=== PATIENT | male | born 2000 | race Caucasian/White ===

== ENCOUNTER 2023-12-31 18:13 | Emergency (ER) | payer OTHER ==
[2023-12-31 18:35] VITALS: O2SAT 100
[2023-12-31 18:48] LABS: BILIRUBIN,URINE NEGATIVE (NEGATIVE); GLUCOSE, URINE (UA) NEGATIVE (NEGATIVE); KETONES,URINE (UA) NEGATIVE (NEGATIVE); LEUKOCYTE ESTERASE, URINE NEGATIVE (NEGATIVE); NITRITE,URINE NEGATIVE (NEGATIVE); OCCULT BLOOD,URINE NEGATIVE (NEGATIVE); PH,URINE 6.5 PH (5.0-7.5); PROTEIN,URINE NEGATIVE (NEGATIVE); UROBILINOGEN,URINE 0.2 (NORMAL) E.U./dL (NORMAL)
[2023-12-31 18:49] LABS: CLARITY,URINE CLEAR (CLEAR)
[2023-12-31 18:52] LABS: BASOPHILS % (AUTO) 0.7 %; EOSINOPHILS % (AUTO) 0.4 %; HCT - HEMATOCRIT 41.9 % (42.0-52.0); HGB - HEMOGLOBIN 14.5 g/dL (14.0-18.0); LYMPHOCYTES # (AUTO) 1.2 10^3/uL (1.5-3.5); LYMPHOCYTES % (AUTO) 21.4 %; MEAN CORPUSCULAR HEMOGLOBIN 32.2 pg (27.0-31.0); MEAN CORPUSCULAR HGB CONC 34.6 g/dL (32.0-36.0); MEAN CORPUSCULAR VOLUME 93.1 fL (80.0-94.0); MONOCYTES # (AUTO) 0.3 10^3/uL (0.0-1.0); MONOCYTES % (AUTO) 4.9 %; NEUTROPHILS # (AUTO) 4.1 10^3/uL (1.5-6.6); NEUTROPHILS % (AUTO) 72.4 %; PLT - PLATELET COUNT 199 10^3/uL (130-450); RED CELL DISTRIBUTION WIDTH 11.9 % (12.0-15.0); WHITE BLOOD COUNT 5.7 x10^3/uL (4.8-10.8)
[2023-12-31 18:59] LABS: AMPHETAMINE SCREEN,URINE NEGATIVE (NEGATIVE); BARBITURATE SCREEN,UR NEGATIVE (NEGATIVE); BENZODIAZEPINES SCREEN, URINE NEGATIVE (NEGATIVE); BUPRENORPHINE SCREEN, URINE NEGATIVE (NEGATIVE); COCAINE SCREEN URINE NEGATIVE (NEGATIVE); METHADONE SCREEN, URINE NEGATIVE (NEGATIVE); METHAMPHETAMINES SCREEN, URINE NEGATIVE (NEGATIVE); OPIATE SCREEN, URINE NEGATIVE (NEGATIVE); OXYCODONE SCREEN, URINE NEGATIVE (NEGATIVE); THC CANNABINOID SCREEN, URINE NEGATIVE (NEGATIVE); TRICYCLIC ANTIDEPRESSANT,URINE NEGATIVE (NEGATIVE)
--- NOTE | 2023-12-31 19:05 | ED Physician Documentation ---
PD HPI MHE - Stated complaint Stated Complaint: SI - Chief complaint Chief Complaint: MHE - History obtained from History obtained from: Patient - History of Present Illness Primary symptom: Suicidal ideation Pain level max: 0 Pain level now: 0 - Additional information Additional information: Patient is a 23-year-old male who presents to the emergency department with suicidal ideation. He is active duty [employer]. He states that he lives in the [facility]. He states that he has had increasing thoughts of suicide over the past 3 years. He states that he had been on bupropion in the past, did not feel like it was helping so stopped it last year. Went back on it about 6 weeks ago. He is seeing behavioral health at the [employer] [facility]. He states that he also started Concerta 3 weeks ago for ADHD. He states that he has never attempted suicide but does not feel like he can keep himself safe at home. He has never been hospitalized for this. He states that nothing really happened today other than none of his friends could "hang out" with him. He states he has had several plans on how to commit suicide including driving his car too fast and crashing it intentionally, using a "exit bag", guns or knives. Review of Systems Constitutional: denies: Fever, Chills Cardiac: denies: Chest pain / pressure, Palpitations Respiratory: denies: Dyspnea, Cough : denies: Dysuria Psychiatric: reports: Depressed, Suicidal. denies: Hallucinations, Delusions, Anxiety PD PAST MEDICAL HISTORY - Past Medical History Past Medical History: Yes Psych: Depression, ADD/ADHD - Past Surgical History Past Surgical History: No - Present Medications Home Medications: Ambulatory Orders Medication Instructions Recorded Confirmed Methylphenidate HCl [Concerta] 36 mg PO DAILY 12/31/23 12/31/23 buPROPion HCL [Bupropion Xl] 150 mg PO DAILY 12/31/23 12/31/23 - Allergies Allergies/Adverse Reactions: Allergies Allergy/AdvReac Type Severity Reaction Status Date / Time No Known Drug Allergies Allergy Verified 12/31/23 18:34 - Social History Does the pt smoke?: No Smoking Status: Never smoker Does the pt drink ETOH?: Yes Does the pt have substance abuse?: No - Immunizations Immunizations are current?: Yes - POLST Patient has POLST: No PD ED PE NORMAL - Vitals Vital signs reviewed: Yes - General General: Alert and oriented X 3, No acute distress - HEENT HEENT: Moist mucous membranes - Neck Neck: Supple, no meningeal sign - Cardiac Cardiac: RRR, Strong equal pulses - Respiratory Respiratory: No respiratory distress, Clear bilaterally - Abdomen Abdomen: Soft, Non tender, Non distended - Derm Derm: Warm and dry - Extremities Extremities: No edema - Neuro Neuro: Alert and oriented X 3 - Psych Psych: Normal mood, Normal affect Results - Vitals Vitals: Vital Signs - 24 hr 12/31/23 12/31/23 18:21 18:34 Temperature 37.2 C 37.2 C Heart Rate 111 H 111 H Respiratory 20 20 Rate Blood Pressure 143/73 H 143/73 H O2 Saturation 100 100 Oxygen O2 Source Room air - EKG (time done) 1913 EKG releavant findings:: EKG personally interpreted by author of this note. Relevant findings are: Rate: Rate (enter#) (99) Rhythm: NSR [place]: Normal Intervals: Normal [place] QRS: Normal Ischemia: ST elevation c/w repol - Labs Labs: Laboratory Tests 12/31/23 12/31/23 12/31/23 18:35 18:46 18:47 WBC 5.7 RBC 4.50 L Hgb 14.5 Hct 41.9 L MCV 93.1 MCH 32.2 H MCHC 34.6 RDW 11.9 L Plt Count 199 MPV 9.0 Neut # (Auto) 4.1 Lymph # (Auto) 1.2 L Cross # (Auto) 0.3 Eos # (Auto) 0.0 Baso # (Auto) 0.0 Absolute Nucleated RBC 0.00 Nucleated RBC % 0.0 Sodium Potassium Chloride Carbon Dioxide Anion Gap BUN Creatinine Estimated GFR (MDRD) Glucose Calcium Magnesium Total Bilirubin AST ALT Alkaline Phosphatase Total Creatine Kinase Total Protein Albumin Globulin Albumin/Globulin Ratio Lipase TSH Urine Color LIGHT YELLOW Urine Clarity CLEAR Urine pH 6.5 Ur Specific [place] <=1.005 Urine Protein NEGATIVE Urine Glucose (UA) NEGATIVE Urine Ketones NEGATIVE Urine Occult Blood NEGATIVE Urine Nitrite NEGATIVE Urine Bilirubin NEGATIVE Urine Urobilinogen 0.2 (NORMAL) Ur Leukocyte Esterase NEGATIVE Ur Microscopic Review NOT INDICATED Urine Culture Comments NOT INDICATED Salicylates Urine Opiates Screen NEGATIVE Ur Buprenorphine Scrn NEGATIVE Ur Oxycodone Screen NEGATIVE Urine Methadone Screen NEGATIVE Acetaminophen Ur Barbiturates Screen NEGATIVE Ur Tricyclics Screen NEGATIVE Ur Phencyclidine Scrn NEGATIVE Ur Amphetamine Screen NEGATIVE U Methamphetamines Scrn NEGATIVE U Benzodiazepines Scrn NEGATIVE Urine Cocaine Screen NEGATIVE U Cannabinoids Screen NEGATIVE Ur Drug Screen Comment CUTOFF CONC BELOW: Ethyl Alcohol SARS-CoV-2 (PCR) NOT DETECTED 12/31/23 18:47 WBC RBC Hgb Hct MCV MCH MCHC RDW Plt Count MPV Neut # (Auto) Lymph # (Auto) Cross # (Auto) Eos # (Auto) Baso # (Auto) Absolute Nucleated RBC Nucleated RBC % Sodium 133 L Potassium 3.3 L Chloride 98 L Carbon Dioxide 25 Anion Gap 10.0 BUN 3 L Creatinine 0.6 Estimated GFR (MDRD) 167 Glucose 94 Calcium 9.6 Magnesium 1.3 L Total Bilirubin 1.1 H AST 19 ALT 13 Alkaline Phosphatase 41 L Total Creatine Kinase 189 Total Protein 6.4 Albumin 4.4 Globulin 2.0 L Albumin/Globulin Ratio 2.2 Lipase < 10 L TSH 0.57 Urine Color Urine Clarity Urine pH Ur Specific [place] Urine Protein Urine Glucose (UA) Urine Ketones Urine Occult Blood Urine Nitrite Urine Bilirubin Urine Urobilinogen Ur Leukocyte Esterase Ur Microscopic Review Urine Culture Comments Salicylates < 1.5 Urine Opiates Screen Ur Buprenorphine Scrn Ur Oxycodone Screen Urine Methadone Screen Acetaminophen 0.1 Ur Barbiturates Screen Ur Tricyclics Screen Ur Phencyclidine Scrn Ur Amphetamine Screen U Methamphetamines Scrn U Benzodiazepines Scrn Urine Cocaine Screen U Cannabinoids Screen Ur Drug Screen Comment Ethyl Alcohol 71.0 SARS-CoV-2 (PCR) PD Medical Decision Making - ED course Complexity details: reviewed results, re-evaluated patient, considered differential, d/w patient ED course: Patient is medically clear for psychiatric care. He appears to be significantly depressed and having increasing suicidal thoughts with out a way to keep himself safe [place]. I think he would benefit from inpatient hospitalization, we will contact [facility] to see if they have beds available. Patient had a mildly low sodium and a mildly low magnesium. He was given IV normal saline and IV magnesium. Patient is accepted to [facility] by Dr. Simpson. COBRA forms completed. This document was made in part using voice recognition software. While efforts are made to proofread this document, sound alike and grammatical errors may occur. Departure - Departure Disposition: 65 Psych Hosp/Unit DC/Xfer Clinical Impression: Suicidal ideation Depression Qualifiers: Depression Type: unspecified Qualified Code(s): F32.A - Depression, unspecified Condition: Stable Forms: PCP List
[2023-12-31 19:06] LABS: ACETAMINOPHEN 0.1 ug/mL; ALBUMIN 4.4 g/dL (3.2-5.5); ALBUMIN/GLOBULIN RATIO 2.2 (1.0-2.2); ALKALINE PHOSPHATASE 41 IU/L (42-121); ALT ALANINE AMINOTRANSFERASE 13 IU/L (10-60); AST ASPARTATE AMINOTRANSFERASE 19 IU/L (10-42); BILIRUBIN,TOTAL 1.1 mg/dL (0.2-1.0); BUN - BLOOD UREA NITROGEN 3 mg/dL (6-20); CALCIUM 9.6 mg/dL (8.5-10.3); CARBON DIOXIDE - CO2 25 mmol/L (21-32); CHLORIDE 98 mmol/L (101-111); CK- CREATINE KINASE 189 IU/L (30-223); CREATININE 0.6 mg/dL (0.6-1.3); GFR - MDRD 167 (>89); GLUCOSE 94 mg/dL (74-104); MAGNESIUM 1.3 mg/dL (1.7-2.3); POTASSIUM 3.3 mmol/L (3.5-4.5); SODIUM 133 mmol/L (135-145); TOTAL PROTEIN 6.4 g/dL (6.4-8.9)
[2023-12-31 19:08] LABS: LIPASE < 10 U/L (11-82); SALICYLATE < 1.5 mg/dL
[2023-12-31] MEDS: MAGNESIUM SULFATE 2 GRAM 2 GM/50 ML BAG IV ONE (19:34)
[2023-12-31] MEDS: SODIUM CHLORIDE 0.9% 1,000 ML IV STA (19:35)
[2023-12-31 19:41] LABS: THYROID STIMULATING HORMONE 0.57 uIU/mL (0.34-5.60)
[2023-12-31 22:20] VITALS: BP 128/72
== END 2023-12-31 22:19 ==
LOC: ED 18:13
DX: F32.A Depression, unspecified (principal); R45.851 Suicidal ideations; Z11.52 Encounter for screening for COVID-19; Z60.8 Other problems related to social environment; Z91.85 Personal history of military service
CPT/HCPCS: 36415; 80053; 80143; 80179; 80306; 81001; 81003; 82077; 82550; 83690; 83735; 84443; 85025; 87086; 87635; 93005; 96365; 99285

== ENCOUNTER 2024-04-11 18:50 | Emergency (ER) | payer OTHER ==
[2024-04-11 19:20] VITALS: BP 134/83; O2SAT 100
--- NOTE | 2024-04-11 19:22 | ED Physician Documentation ---
History of Present Illness - Stated complaint Stated Complaint: SI - Chief complaint Chief Complaint: MHE - Additonal information Additional information: 23yo M w/h/o ADHD, MDD presents after reportedly making suicidal statement outpatient. The patient is active duty [employer]. He states over months ago he was admitted for SI and depression and that he has been doing better over time using outpatient resources. He regularly sees psychiatry outpatient, and saw them today. He made an offhand comment about suicidal thoughts today, and there was concern for this, prompting ER evaluation. He states paramedics came to assess him, but he did not want to go to the ER, then his officers required he present. He denies any current SI. No HI. No hallucinations. No other concerns. He feels admission currently would not benefit him, and that he prefers to continue outpatient counseling and resources. He understands I plan to contact his officers and agrees to this. I spoke on phone with Nicho Long at [facility], reviewing history. He confirms the same story patient gave me. Command wanted patient cleared by a physician but has no other new concerns. The chief is also on his way here, phone number of: [phone]. Per chart review, patient was seen in December with SI. He stated thoughts of self harm over the past 3 years then. He had plans for self harm at the time and was admitted for psychiatric care then. ROS Constitutional: no fever, no chills Eyes: no visual disturbance, no discharge Ears, Nose, Mouth, Throat: no rhinorrhea, no sore throat Cardiovascular: no chest pain, no palpitations Respiratory: no cough, no shortness of breath Gastrointestinal: no abdominal pain, no vomiting, no diarrhea Genitourinary: no dysuria, no hematuria Musculoskeletal: no back pain, no neck stiffness Skin: no rash, no wound Neurological: no focal weakness, no focal numbness PD PAST MEDICAL HISTORY - Past Medical History Past Medical History: Yes Psych: Depression, ADD/ADHD - Past Surgical History Past Surgical History: No - Present Medications Home Medications: Ambulatory Orders Medication Instructions Recorded Confirmed Methylphenidate HCl [Concerta] 36 mg PO DAILY 12/31/23 12/31/23 buPROPion HCL [Bupropion Xl] 150 mg PO DAILY 12/31/23 12/31/23 - Allergies Allergies/Adverse Reactions: Allergies Allergy/AdvReac Type Severity Reaction Status Date / Time No Known Drug Allergies Allergy Verified 04/11/24 19:11 - Social History Does the pt smoke?: No Smoking Status: Never smoker Does the pt drink ETOH?: Yes Does the pt have substance abuse?: No - Immunizations Immunizations are current?: Yes - POLST Patient has POLST: No PD ED PE NORMAL - Free text exam Free text exam: Const: no acute distress, non toxic appearing Eyes: PERRLA, EOMI ENT: mucous membranes moist Neck: supple, non-tender Resp: no respiratory distress, clear to auscultation bilaterally Card: regular rate and rhythm, no murmurs Abd: non tender diffusely, no rigidity or rebound or guarding Back: no T or L spine tenderness, no CVA tenderness bilaterally Extrem: no deformities, no swelling bilateral lower extremities Psych: non disheveled appearance. Cooperative behavior. Regular speech rate and rhythm. Appropriate eye contact. Thought content why in ED today. Thought process linear, goal oriented. Mood calm. Affect calm. Insight good. Judgement g ood. Cognition within normal limits. No SI or HI. No AVH noted on exam. Neuro: ANOx4, satellite [employer] grossly intact, grossly intact sensation and strength all extremities Skin: no rash, warm and dry Results - Vitals Vitals: Vital Signs - 24 hr 04/11/24 04/11/24 19:02 19:11 Temperature 36.4 C L Heart Rate 90 90 Respiratory 16 Rate Blood Pressure 134/83 H O2 Saturation 100 Oxygen O2 Source Room air PD Medical Decision Making - ED course ED course: This patient presents with reports of suicidal statements outpatient in the setting of service with [employer]. The patient is an excellent and clear historian. He clearly describes that he is not suicidal, with no plans to harm self, along with intensive outpatient therapy he is receiving. He currently has a reassuring psychiatric exam. He does have chronic risk factors for self-harm, however currently, he is demonstrating capacity to me. He is future oriented, cooperative and consistent. Nonetheless, I am working to obtain collateral to confirm history and discuss with those who know him. I spoke with once officer as discussed previously and am reaching out to patient's Chief, reportedly by name Jamshid to discuss further. Patient currently stable. I spoke on phone with Chief Jamshid at about 7:40PM, along with Chief on duty in person here. Jamshid clearly states to me she does not feel patient is at risk of self-harm. She knows patient and his treatment. I have also requested speaking with their psychiatry team, and they are working to obtain this contact. Patient stable at 8:25PM, awaiting information regarding psychiatry team. I spoke with Dr. Collazo of psychiatry team on phone at roughly 9:22PM. We discussed care. Patient was in parking lot earlier when he made what sounds like an off hand statement about self harm. He does not have plan to hurt himself. In addition, he is trying to downsize his belongings with an anticipated possible move out of state, but is not trying to get rid of all his belongings. Myself, patient's Chief Jamshid, and Dr. Collazo all feel comfortable with patient discharging. He demonstrates capacity consistently here. In addition, he will be at [facility], and Dr. Collazo will set up close follow up with him tomorrow. This seems very reasonable to me currently. At this juncture, after extensive conversations with multiple collateral sources, patient appears stable for discharge. This patient may always have some risk of self-harm. However, we must weigh the risk of damaging his relationship with the healthcare system with the benefits of forcing an acute inpatient psychiatric admission. In addition, outpatient treatment will help him develop coping skills needed for long-term improvement. Accordingly, weighing risks and benefits, discharge currently is in the best interest of this patient. In addition, patient has very close follow-up tomorrow. However, patient and staff aware he can and should immediately return if there are any new or worsening symptoms. Repeat exams reassuring. Patient questions answered and plan reviewed. Strong return precautions given. Patient discharged. Departure - Departure Disposition: 01 Home, Self Care Clinical Impression: Suicidal ideation Condition: Good Instructions: ED Depression Comments: It was a pleasure taking care of you today. It is important to fully read and understand the below. Please ask us if you have any questions. We assessed you here and spoke with your supervising officers as well as your psychiatry team. Together, we all feel comfortable with you being back at your [facility]. Your psychiatry team will see you tomorrow. Please merely return if you have any new concerns; we are always happy to help you. No tests or assessments are perfect, and your condition could roving changer time. If your symptoms change or worsen, it is very important you immediately seek medical care. If you have any new or worsening pain, shortness of breath, fever, vomiting, thoughts of hurting yourself, thoughts of hurting anyone else, hallucinations, confusion, numbness, weakness, or anything else that concerns you, please immediately seek medical care. If you have been prescribed any medications: please read the drug package inserts on how to properly use the medication and any potential side effects. If you had labs (blood tests) or imaging (CT scan or x-rays) done during your visit: please follow up on the results of these with your primary care doctor, as discussed. In addition, please know the results we received today may be preliminary. Our usual practice is to follow up on tests within a few days of a patient's discharge from the Emergency Department and notify you of any changes. These may lead to changes to your treatment plan. However, the best way to ob tain and interpret these test results is through your Primary Care Provider. If you need to update your contact information, please stop by the front office supervisor and alert the Registration personnel before you leave the Emergency Department. Thank you for the opportunity to participate in your healthcare. We are always here and happy to see you in the future. Forms: PCP List Discharge Date/Time: 04/11/24 22:47
== END 2024-04-11 22:47 | disposition home or self-care (01) ==
LOC: ED 18:50
DX: R45.851 Suicidal ideations (principal); F32.A Depression, unspecified
CPT/HCPCS: 99281; 99283